=== PATIENT | female | born 2005 | race African-American/Black ===

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

== ENCOUNTER 2024-01-27 01:06 | Emergency (ER) | payer OTHER, SELFPAY ==
[2024-01-27 01:46] LABS: Pregnancy Test - Urine (BHCG) POSITIVE (Negative); Pregu Control Background? CLEAR/WHITE (CLR/WHITE); Pregu Control Bar Appear? YES (CONTROL BAR); Specific Gravity 1.028 (1.002-1.036)
[2024-01-27] MEDS ORDERED: Ondansetron PF 4 MG/2 ML Vial ONE (04:03)
[2024-01-27] MEDS ORDERED: PROPOFOL 20 ML ONE ×2 (04:03→08:08)
[2024-01-27] MEDS ORDERED: fentaNYL 50 mcg/mL 1 mL Vial ONE (04:04)
[2024-01-27] MEDS ORDERED: Morphine 4 MG/ML VIAL ONE (06:59)
[2024-01-27] MEDS ORDERED: Morphine 2 MG/ML VIAL ONE (07:05)
== END 2024-01-27 09:18 | disposition home or self-care (01) ==
LOC: ERS 01:06
DX: S43.005A Unspecified dislocation of left shoulder joint, initial encounter (principal); M25.522 Pain in left elbow; Y04.2XXA Assault by strike against or bumped into by another person, initial encounter; Y93.89 Activity, other specified; Z33.1 Pregnant state, incidental
CPT/HCPCS: 23650; 81025; 96374; 96375; 99156; J2272; J2405; J2704; J3010

== ENCOUNTER 2024-01-28 18:14 | Emergency (ER) | payer SELFPAY | END 2024-01-29 02:15 | disposition home or self-care (01) | LOC: ERS 18:14 | DX: S42.292A Other displaced fracture of upper end of left humerus, initial encounter for closed fracture (principal); X50.3XXA Overexertion from repetitive movements, initial encounter | CPT/HCPCS: 71250 ==